=== PATIENT | female | born 1995 | race Two or more races ===

== ENCOUNTER 2020-04-30 11:47 | Outpatient (CLI) | payer OTHER ==
[~2020-04-30] VITALS: Ht 154.9 cm; Wt 49.9 kg
== END 2020-04-30 12:30 | disposition home or self-care (01) ==
LOC: OFIC 805 11:47
PROVIDERS: ATTEND Otolaryngology
DX: H93.8X3 Other specified disorders of ear, bilateral (principal); J30.89 Other allergic rhinitis; R09.81 Nasal congestion

== ENCOUNTER 2020-05-29 15:04 | Outpatient (CLI) | payer OTHER | END 2020-05-29 16:00 | disposition home or self-care (01) | LOC: OFIC 805 15:04 | PROVIDERS: ATTEND Otolaryngology | DX: J30.89 Other allergic rhinitis (principal); R09.81 Nasal congestion; J32.8 Other chronic sinusitis ==